=== PATIENT | male | born 1955 | race Caucasian/White ===

== ENCOUNTER 2025-05-06 09:00 | Emergency (ER) | payer MEDICARE, OTHER ==
[2025-05-06 09:38] LABS: BLOOD UREA NITROGEN,BUN 34 mg/dL (7-18); CARBON DIOXIDE,CO2 30 mmol/L (21-32); CHLORIDE,CL 100 mmol/L (100-110); CREATININE 1.9 mg/dL (0.70-1.30); EST CRCL DRUG DOSING (CG) 27.51 mL/min; ESTIMATED GFR 38 mL/min (>60); GLUCOSE RANDOM 194 mg/dL (80-116); MEAN PLATELET VOLUME 8.0 fL (6.7-11.0); PLATELET COUNT,PLT 505 x10(3)uL (117-477); POTASSIUM,K 4.3 mmol/L (3.5-5.3); RED BLOOD CELL COUNT 4.04 x10(6)uL (3.90-5.90); RED CELL DISTRIBUTION WIDTH 15.5 % (12.4-15.0); SODIUM,NA 139 mmol/L (135-145); WHITE BLOOD CELL COUNT,WBC 16.0 x10-3/uL (3.2-10.1)
[2025-05-06 09:44] LABS: A/G RATIO 0.5; ALANINE AMINOTRANSFERASE,ALT 34 U/L (12-36); ASPARTATE AMNIOTRANSFERASE,AST 44 IU/L (5-25); BILIRUBIN TOTAL 0.6 mg/dL (0.1-1.3); PROTEIN TOTAL,TP 5.9 g/dL (6.0-8.0)
[2025-05-06 09:54] LABS: PRO B-TYPE NATRIUR PEPT,BNPPRO 4236.0 pg/mL (<=125)
[2025-05-06 09:57] LABS: BASE EXCESS VENOUS,POC 1 mmol/L (-2 - 3+); PCO2 VENOUS,POC 46 mmHg (41-51); PH VENOUS,POC 7.38 pH Units (7.32-7.43)
[2025-05-06 09:59] LABS: LYMPHOCYTES PERCENT MAN 2 % (13-37); MONOCYTES PERCENT MAN 5 % (4-12); SEG NEUTROPHILS PERCENT MAN 93 % (46-82)
[2025-05-06 10:03] LABS: LACTIC ACID 2.8 mmol/L (0.4-2.0)
[2025-05-06 10:23] VITALS: BP 122/74; PULSE 96
[2025-05-06] MEDS: VANCOmycin 1 GM/200 ML 1 GM in Premix Bag 1 BAG IV ONE (10:49)
[2025-05-06] MEDS: Heparin Sodium 5,000 Units/ML Vial IVPUSH ONE (11:52)
[2025-05-06] MEDS: Heparin Sodium/0.45% NaCl 25,000 UNITS/500 ML BAG IV SCH (11:52)
== END 2025-05-06 13:35 ==
LOC: FB.ED 09:00
DX: E11.621 Type 2 diabetes mellitus with foot ulcer (principal); L97.514 Non-pressure chronic ulcer of other part of right foot with necrosis of bone; I25.10 Atherosclerotic heart disease of native coronary artery without angina pectoris; I11.0 Hypertensive heart disease with heart failure; I50.9 Heart failure, unspecified; E78.00 Pure hypercholesterolemia, unspecified; F17.200 Nicotine dependence, unspecified, uncomplicated; J44.9 Chronic obstructive pulmonary disease, unspecified; E10.9 Type 1 diabetes mellitus without complications; Z91.041 Radiographic dye allergy status; Z79.899 Other long term (current) drug therapy; Z79.02 Long term (current) use of antithrombotics/antiplatelets
CPT/HCPCS: 36415; 71045; 73700; 80053; 83605; 83880; 84484; 85025; 85730; 86140; 87040; 93005; 96365; 96366; 96367; 99285; J1644; J2543; J3375; J7030